=== PATIENT | female | born 1945 | race Two or more races ===

== ENCOUNTER 2024-01-25 12:53 | Inpatient (IN) | payer OTHER ==
[~2024-01-25] VITALS: Ht 170.2 cm; Wt 79.7 kg
[2024-01-25 13:03] VITALS: PULSE 76; RESP 31; O2SAT 97
[2024-01-25 13:31] LABS: Basophils # (auto) 0.1 10 ^3/uL (0-0.2); Basophils % (auto) 0.7 % (0.0-2.0); Eosinophils # (auto) 0 10 ^3/uL (0-0.8); Hemoglobin 18.2 g/dL (12.2-16.2); Neutrophils % (auto) 81.6 % (37.0-80.0)
[2024-01-25 13:33] LABS: Eosinophils % (auto) 0.2 % (0.0-7.0); Hematocrit 51.8 % (36.0-46.0); Lymphocytes # (auto) 1.5 10 ^3/uL (0.4-5.4); Lymphocytes % (auto) 13.3 % (10.0-50.0); Mean Corpuscular Hemoglobin 33.3 pg (28.0-32.0); Mean Corpuscular Hgb Conc. 35.2 g/dL (32.0-36.0); Mean Corpuscular Volume 94.5 fL (80.0-100.0); Monocytes # (auto) 0.5 10 ^3/uL (0-1.3); Monocytes % (auto) 4.2 % (0.0-12.0); Neutrophils # (auto) 9.2 10 ^3/uL (1.6-8.6); Nucleated Red Blood Cells % 0.2 %; Red Blood Cells 5.48 10^6/uL (4.0-5.20); Red Cell Distribution Width 13.8 % (11.8-14.3); White Blood Cell 11.2 10^3/uL (4.4-10.8)
[2024-01-25 13:40] LABS: Chloride 102 mmol/L (98-107); Potassium 3.9 mmol/L (3.5-5.1); Sodium 139 mmol/L (136-145)
[2024-01-25 13:41] LABS: Anion Gap 14 (5-15); Calcium 11.9 mg/dL (8.7-10.4); Carbon Dioxide 23 mmol/L (20-30)
[2024-01-25] MEDS: SODIUM CHLORIDE 0.9% 1,000 ML IV ONE (13:42)
[2024-01-25 13:46] LABS: BUN/Creatinine Ratio 12.6 (10.0-20.0); Blood Urea Nitrogen 11 mg/dL (9-23); Glucose 150 mg/dL (74-106)
[2024-01-25 13:56] LABS: Urine Bacteria FEW /hpf (None Seen); Urine Blood TRACE /uL (Negative); Urine Clarity Turbid (Clear); Urine Color Colorless (Yellow); Urine Protein, UAD 1+ (Negative); Urine Specific Gravity 1.008 (1.001-1.035); Urine Urobilinogen Normal (Negative); Urine WBC 5 /hpf (0 - 5); Urine pH 7.5 (5.0-9.0)
[2024-01-25] MEDS: LABETALOL HCL 20 MG/4 ML VL IV ONE (14:10)
[2024-01-25] MEDS: cefTRIAXone 1GM/50ML D5W 50 ML IV ONE (14:36)
[2024-01-25] MEDS: ONDANSETRON HCL 4 MG/2 ML VIAL IV ONE ×2 (15:37→19:03)
[2024-01-25] MEDS: hydrALAZINE HCL 20 MG/ML VL IV ONE (17:06)
[2024-01-25] MEDS: LISINOPRIL 20 MG TAB PO ONE (17:08)
[2024-01-25 17:19] LABS: Magnesium 1.9 mg/dL (1.6-2.6)
[2024-01-25] MEDS: LORazepam 2MG/ML-1ML VIAL IV ONE (17:21)
[2024-01-25] MEDS: IOHEXOL 350 MG/ML 100ML IJ ONE (17:34)
[2024-01-25] MEDS: ONDANSETRON HCL 4 MG/2 ML VIAL ONE (19:04)
[2024-01-25] MEDS ORDERED: DOCUSATE SOD 100 MG CAP PO PRN (19:30)
[2024-01-25] MEDS ORDERED: ACETAMINOPHEN 325 MG TAB PO PRN (19:30)
[2024-01-25 20:00] VITALS: PULSE 89; RESP 20; O2SAT 92
[2024-01-25] MEDS: ONDANSETRON HCL 4 MG/2 ML VIAL IV PRN (20:25)
[2024-01-25] MEDS: hydrALAZINE HCL 20 MG/ML VL IV PRN (20:25)
[2024-01-25] MEDS: HYDROcodone-ACET 5/325MG TAB PO PRN (20:25)
[2024-01-25] MEDS: ENOXAPARIN SOD 40 MG/0.4 ML SYRINGE SC ONE (20:30)
[2024-01-25 20:45] LABS: Lactic Acid w/Reflex 2.1 mmol/L (0.4-2.0)
[2024-01-25 22:57] VITALS: BP 146/82; PULSE 84; RESP 18; TEMP 98.7; O2SAT 95
[2024-01-25] MEDS: SODIUM CHLOR 0.9% PF (SALINE LOCK) 10ML VIAL/SYR IV SCH (23:12)
[2024-01-25] MEDS: SODIUM CHLORIDE 0.9% 500 ML IV ONE (23:15)
[2024-01-25] MEDS: METOPROLOL TARTRATE 25 MG TAB PO SCH (23:36)
[2024-01-26] VITALS (8 sets, daily range): BP systolic 106–143; BP diastolic 46–91; PULSE 61–82; RESP 16–20; TEMP 36; O2SAT 93–96
[2024-01-26] MEDS ORDERED: MORPHINE SULFATE INJ 2 MG/ml SYRG IV PRN (00:15)
[2024-01-26] MEDS: PANTOPRAZOLE 40 MG/10 ML VIAL INJ IV ONE (01:07)
[2024-01-26] MEDS: PANTOPRAZOLE 40 MG/10 ML VIAL INJ IV SCH (10:02)
[2024-01-26] MEDS: ENOXAPARIN SOD 40 MG/0.4 ML SYRINGE SC SCH (10:02)
[2024-01-26] MEDS: LISINOPRIL 20 MG TAB PO SCH (10:15)
[2024-01-26] MEDS ORDERED: PRAM2.25 PO (15:48)
[2024-01-26] MEDS: cefTRIAXone 1GM/50ML D5W 50 ML IV ONE (17:51)
[2024-01-26] MEDS: PRAMIPEXOLE DIHYDROCHLORIDE MO 0.25 MG TAB PO ONE (18:11)
[2024-01-26 18:24] LABS: COVID19 ANTIGEN SOFIA FIA NEGATIVE (NEGATIVE)
[2024-01-26] MEDS ORDERED: PRAM0.752 PO (18:24)
[2024-01-27] MEDS ORDERED: cefTRIAXone 1GM/50ML D5W 50 ML IV SCH (09:00)
[2024-01-27] MEDS ORDERED: PRAMIPEXOLE DIHYDROCHLORIDE MO 0.25 MG TAB PO SCH ×2 (16:00)
== END 2024-01-26 22:22 | disposition short-term general hospital (02) | DRG 872 ==
LOC: EDBD 12:53 → ER 12:53 → TELE-CENTR 19:26 → TELE 19:26 → TELE-CENTR 22:45
PROVIDERS: ADMIT Internal Medicine; ATTEND Internal Medicine
DX: A41.9 Sepsis, unspecified organism (principal); N39.0 Urinary tract infection, site not specified; I43 Cardiomyopathy in diseases classified elsewhere; I16.1 Hypertensive emergency; Z20.822 Contact with and (suspected) exposure to COVID-19; E78.5 Hyperlipidemia, unspecified; T67.5XXA Heat exhaustion, unspecified, initial encounter; I11.9 Hypertensive heart disease without heart failure; E66.9 Obesity, unspecified; G25.81 Restless legs syndrome; Z88.2 Allergy status to sulfonamides; X30.XXXA Exposure to excessive natural heat, initial encounter; Z90.710 Acquired absence of both cervix and uterus; Z90.49 Acquired absence of other specified parts of digestive tract; Z68.27 Body mass index [BMI] 27.0-27.9, adult; Z87.891 Personal history of nicotine dependence
CPT/HCPCS: 36415; 70450; 71045; 71275; 80048; 80061; 81001; 83036; 83605; 83735; 83880; 84443; 84484; 85025; 87040; 87086; 87088; 87186; 87426; 93005; 93306; 96361; 96365; 96375; 96376; G0378; J2405; J2470

== ENCOUNTER 2024-01-31 19:09 | Emergency (ER) | payer OTHER ==
[~2024-01-31] VITALS: Ht 172.7 cm; Wt 80.9 kg
[~2024-01-31 19:09] MED LIST: PRAM0.752 PO
[2024-01-31 19:56] LABS: Basophils # (auto) 0.1 10 ^3/uL (0-0.2); Basophils % (auto) 1.2 % (0.0-2.0); Eosinophils # (auto) 0.2 10 ^3/uL (0-0.8); Eosinophils % (auto) 2.9 % (0.0-7.0); Hematocrit 42.8 % (36.0-46.0); Hemoglobin 14.8 g/dL (12.2-16.2); Lymphocytes # (auto) 2.5 10 ^3/uL (0.4-5.4); Lymphocytes % (auto) 32.2 % (10.0-50.0); Mean Corpuscular Hemoglobin 32.7 pg (28.0-32.0); Mean Corpuscular Hgb Conc. 34.5 g/dL (32.0-36.0); Mean Corpuscular Volume 94.7 fL (80.0-100.0); Monocytes # (auto) 0.6 10 ^3/uL (0-1.3); Monocytes % (auto) 7.4 % (0.0-12.0); Neutrophils # (auto) 4.5 10 ^3/uL (1.6-8.6); Neutrophils % (auto) 56.3 % (37.0-80.0); Nucleated Red Blood Cells % 0.1 %; Red Blood Cells 4.52 10^6/uL (4.0-5.20); Red Cell Distribution Width 13.3 % (11.8-14.3); White Blood Cell 7.9 10^3/uL (4.4-10.8)
[2024-01-31 20:08] LABS: Alanine Aminotransferase 17 U/L (7-40); Albumin 4.1 g/dL (3.2-4.8); Alkaline Phosphatase 70 U/L (46-116); Anion Gap 5 (5-15); Aspartate Aminotransferase 19 U/L (13-40); BUN/Creatinine Ratio 18.1 (10.0-20.0); Bilirubin, Total 0.4 mg/dL (0.2-1.0); Blood Urea Nitrogen 15 mg/dL (9-23); CRP High Sensitivity 0.04 mg/dL (<1.0); Calcium 10.2 mg/dL (8.7-10.4); Carbon Dioxide 31 mmol/L (20-30); Chloride 103 mmol/L (98-107); Glucose 109 mg/dL (74-106); Potassium 4.2 mmol/L (3.5-5.1); Sodium 139 mmol/L (136-145); Total Protein 6.2 g/dL (5.7-8.2)
[2024-01-31 21:03] VITALS: BP 127/71; PULSE 53; RESP 18; TEMP 98.5; O2SAT 94
[2024-01-31] MEDS: FUROSEMIDE 40 MG/4 ML VIAL IV ONE (21:09)
[2024-01-31 21:20] LABS: Urine Bacteria FEW /hpf (None Seen); Urine Blood Negative /uL (Negative); Urine Clarity Clear (Clear); Urine Color Light-Yellow (Yellow); Urine Protein, UAD Negative (Negative); Urine Specific Gravity 1.009 (1.001-1.035); Urine Urobilinogen Normal (Negative); Urine WBC <1 /hpf (0 - 5)
[2024-01-31 21:26] LABS: Erythrocyte Sedimentation Rate 8 mm/hr (0-20)
== END 2024-01-31 21:35 | disposition home or self-care (01) ==
LOC: ER 19:09
DX: R22.43 Localized swelling, mass and lump, lower limb, bilateral (principal); I10 Essential (primary) hypertension; E78.5 Hyperlipidemia, unspecified; Z90.49 Acquired absence of other specified parts of digestive tract; Z90.710 Acquired absence of both cervix and uterus; Z88.2 Allergy status to sulfonamides; Z79.899 Other long term (current) drug therapy; Z79.01 Long term (current) use of anticoagulants
CPT/HCPCS: 36415; 80053; 81001; 83605; 83880; 84484; 85025; 85652; 86141; 96374; 99283; J1940